=== PATIENT | female | born 1990 | race Caucasian/White ===

== ENCOUNTER 2018-11-09 21:57 | Emergency (ER) | payer SELFPAY ==
[2018-11-09 22:29] LABS: Urine Blood NEGATIVE (NEG); Urine Glucose NEGATIVE (NEG); Urine Protein NEGATIVE (NEG); Urine pH 7.5 (5.0-7.0)
[2018-11-09] MEDS ORDERED: ACETAMINOPHEN 500 MG TAB ONE (22:44)
[2018-11-09] MEDS ORDERED: IBUPROFEN 400 MG TAB ONE (22:44)
--- NOTE | 2018-11-09 23:01 | EDPHYS ---
Physician Documentation [facility] Name: Heidy Granados Age: 28 yrs Sex: Female : 1990 Arrival Date: 11/09/2018 Time: 21:59 Bed 14 Private MD: ED Physician Abhi Gong HPI: 11/09 22:05 This 28 yrs old Female presents to ER via EMS with complaints of left wrist cp pain. 22:05 The patient or guardian reports pain, tenderness. Context: resulted from an unknown cp cause. Onset: The symptoms/episode began/occurred today. Modifying factors: the symptoms are aggravated by gripping. Associated signs and symptoms: Pertinent negatives: cyanosis distally, decreased sensation distally. 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 - Social history:: Smoking status: Patient uses tobacco products, smokes one-half pack cigarettes per day, Patient/guardian denies using alcohol. - Ebola Screening: : No symptoms or risks identified at this time. ROS: 22:10 Constitutional: Negative for body aches, chills, fever, poor PO intake. cp 22:10 Eyes: Negative for injury, pain, redness, and discharge. cp 22:10 ENT: Negative for drainage from ear(s), ear pain, sore throat, difficulty swallowing, difficulty handling secretions. 22:10 Respiratory: Negative for cough. 22:10 Abdomen/GI: Negative for abdominal pain, vomiting, diarrhea, constipation. 22:10 Back: Negative for pain at rest, pain with movement. 22:10 MS/extremity: Positive for pain, tenderness, of the ulna side of left wrist, Negative for injury or acute deformity, decreased range of motion, paresthesias. 22:10 Skin: Negative for cellulitis, rash. 22:10 All other systems are negative. Exam: 22:18 Constitutional: The patient appears in no acute distress, alert, awake, well developed, cp well nourished. 22:18 Head/Face: Normocephalic, atraumatic. cp 22:18 Eyes: Periorbital structures: appear normal, Conjunctiva: normal, Lids and lashes: appear normal, bilaterally. 22:18 Chest/axilla: Inspection: normal. 22:18 Cardiovascular: Rate: tachycardic. 22:18 Musculoskeletal/extremity: Extremities: grossly normal except: noted in the proximal left first metacarpal: pain, tenderness, There is no evidence of decreased ROM, deformity, ROM: limited passive range of motion due to pain, in the left wrist, Perfusion: the extremity is normally perfused throughout, Sensation intact. 22:18 Skin: cellulitis, is not appreciated, no rash present. Vital Signs: 21:55 BP 138 / 97; Pulse 101; Resp 18; Temp 99.2; Pulse Ox 100% on R/A; Weight 108.86 kg (R); jb4 Height 5 ft. 8 in. (172.72 cm) (R); Pain 3/10; 23:00 BP 116 / 79; Pulse 87; Resp 16; Pulse Ox 100% on R/A; jb4 21:55 Body Mass Index 36.49 (108.86 kg, 172.72 cm) jb4 MDM: 22:01 Patient medically screened. cp 23:00 Data reviewed: vital signs, nurses notes, radiologic studies, plain films. cp 23:00 Test interpretation: by ED physician or midlevel provider: plain radiologic studies. cp Response to treatment: improved, and as a result, I will discharge patient. ED course: xrays of left wrist negative for fracture. 11/09 22:22 Order name: Urine Dipstick--Ancillary (enter results); Complete Time: 23:04 2 11/09 22:22 Order name: Urine --Ancillary (enter results); Complete Time: 23:04 2 11/09 22:00 Order name: XRAY Wrist LEFT 3 view cp 11/09 22:53 Order name: Thumb Spica Splint; Complete Time: 23:18 cp Administered Medications: 22:37 Drug: Ibuprofen 800 mg Route: PO; 4 23:00 Follow up: Response: No adverse reaction; Pain is decreased [facility] 22:37 Drug: Tylenol 1000 mg Route: PO; jb4 23:00 Follow up: Response: No adverse reaction; Pain is decreased [facility] Disposition: 11/09/18 23:00 Discharged to Home. Impression: Pain in left wrist. - Condition is Stable. - Discharge Instructions: Wrist Pain, De Quervain Tenosynovitis. - Prescriptions for Diclofenac Sodium 75 mg Oral Tablet Sustained Release - take 1 tablet by ORAL route 2 times per day; 30 tablet. - Medication Reconciliation Form, Thank You Letter, Antibiotic Education, Prescription Opioid Use form. - Follow up: Adin Barton MD; When: 1 week; Reason: pain continues. - Problem is new. - Symptoms have improved. Addendum: 11/14/2018 10:51 Co-signature as Attending Physician, Abhi Gong MD I agree with the assessment and c nam plan of care. Signatures: Dispatcher [employer] EDOK Abhi Gong MD MD cha Page, Corey, PA PA Juan Ruiz, RN RN jb4 Corrections: (The following items were deleted from the chart) 11/09 23:18 23:00 11/09/2018 23:00 Discharged to Home. Impression: Pain in left wrist. Condition is jb4 Stable. Forms are Medication Reconciliation Form, Thank You Letter, Antibiotic Education, Prescription Opioid Use. Follow up: Adin Barton; When: 1 week; Reason: pain continues. Problem is new. Symptoms have improved. cp
--- NOTE | 2018-11-09 23:01 | ER ---
Nurse's Notes [facility] Name: Heidy Granados Age: 28 yrs Sex: Female : 1990 Arrival Date: 11/09/2018 Time: 21:59 Bed 14 Private MD: Diagnosis: Pain in left wrist Presentation: 11/09 21:55 Presenting complaint: EMS states: Pt is complaining of left wrist pain, has a jb4 noticeable lump on the wrist. 21:55 Transition of care: patient was not received from another setting of care. Onset of jb4 symptoms was November 09, 2018. Risk Assessment: Do you want to hurt yourself or someone else? Patient reports no desire to harm self or others. Initial Sepsis Screen: Does the patient meet any 2 criteria? HR > 90 bpm. Yes Does the patient have a suspected source of infection? No. Patient's initial sepsis screen is negative. Care prior to arrival: None. 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 - Social history:: Smoking status: Patient uses tobacco products, smokes one-half pack cigarettes per day, Patient/guardian denies using alcohol. - Ebola Screening: : No symptoms or risks identified at this time. Screenin:55 Abuse screen: Denies threats or abuse. Nutritional screening: No deficits noted. jb4 Tuberculosis screening: No symptoms or risk factors identified. Fall Risk None identified. Assessment: 21:55 General: Appears in no apparent distress. comfortable, Behavior is calm, cooperative, jb4 appropriate for age. Pain: Complains of pain in lateral aspect of left wrist Pain does not radiate. Pain currently is 3 out of 10 on a pain scale. Neuro: Level of Consciousness is awake, alert, obeys commands, Oriented to person, place, time, situation. Cardiovascular: Patient's skin is warm and dry. Respiratory: Airway is patent Respiratory effort is even, unlabored, Respiratory pattern is regular, symmetrical. GI: No signs and/or symptoms were reported involving the gastrointestinal system. : No signs and/or symptoms were reported regarding the genitourinary system. EENT: No signs and/or symptoms were reported regarding the EENT system. Derm: Skin is intact, Skin is pink, warm \T\ dry. Musculoskeletal: Circulation, motion, and sensation intact. Range of motion: limited in MCP of left thumb. 23:00 Reassessment: Patient appears in no apparent distress at this time. Patient and/or jb4 family updated on plan of care and expected duration. Pain level reassessed. Patient is alert, oriented x 3, equal unlabored respirations, skin warm/dry/pink. Vital Signs: 21:55 BP 138 / 97; Pulse 101; Resp 18; Temp 99.2; Pulse Ox 100% on R/A; Weight 108.86 kg (R); jb4 Height 5 ft. 8 in. (172.72 cm) (R); Pain 3/10; 23:00 BP 116 / 79; Pulse 87; Resp 16; Pulse Ox 100% on R/A; jb4 21:55 Body Mass Index 36.49 (108.86 kg, 172.72 cm) jb4 ED Course: 21:55 Arm band placed on left wrist. jb4 21:55 Patient has correct armband on for positive identification. Bed in low position. Call jb4 light in reach. Side rails up X 1. Pulse ox on. NIBP on. 21:59 Patient arrived in ED. jb4 22:00 Triage completed. jb4 22:00 Abhi Simpson PA is PHCP. cp 22:01 Abhi Gong MD is Attending Physician. cp 22:05 Juan Bailey, YANA is Primary Nurse. jb4 22:17 XRAY Wrist LEFT 3 view In Process Unspecified. EDMS 23:00 Adin Barton MD is Referral Physician. cp 23:00 No provider procedures requiring assistance completed. Patient did not have IV access jb4 during this emergency room visit. Velcro wrist splint applied to left wrist. Administered Medications: 22:37 Drug: Ibuprofen 800 mg Route: PO; jb4 23:00 Follow up: Response: No adverse reaction; Pain is decreased jb4 22:37 Drug: Tylenol 1000 mg Route: PO; jb4 23:00 Follow up: Response: No adverse reaction; Pain is decreased jb4 Outcome: 23:00 Discharge ordered by . fadi 23:10 Discharged to home ambulatory. jb4 23:10 Condition: stable 23:10 Discharge instructions given to patient, Instructed on discharge instructions, follow up and referral plans. medication usage, Demonstrated understanding of instructions, follow-up care, medications, Prescriptions given X 1. 23:18 Patient left the ED. jb4 Signatures: Dispatcher [employer] EDAR Abhi Simpson PA PA cp Bryson, James, RN RN jb4
--- NOTE | 2018-11-10 07:25 | RAD REPORT ---
EXAM DESCRIPTION: RAD - Wrist Left 3 View - 11/09/2018 10:22 pm CLINICAL HISTORY: Left wrist pain, soft tissue mass COMPARISON: None. FINDINGS: No fracture is identified. There is no dislocation or periosteal reaction noted. No air, c alcification or foreign body in the soft tissues. No radiographic correlate for a clinically palpable mass. IMPRESSION: Negative left wrist examination. Ongoing clinical concerns regarding the reported soft t issue mass can be addressed with MR imaging.
== END 2018-11-09 23:18 | disposition home or self-care (01) ==
LOC: ER 21:57
DX: M25.532 Pain in left wrist (principal); F17.210 Nicotine dependence, cigarettes, uncomplicated
CPT/HCPCS: 81003; 81025; 99284

== ENCOUNTER 2019-05-30 18:28 | Emergency (ER) | payer SELFPAY ==
--- OUTSIDE RECORDS SUMMARY | 2019-05-30 18:30 | XMS REPORT | Summary of Care ---
:1990 Author Name SABRINA FINE M.D. Address Unavailable Unavailable , Care Team Providers Name Role Phone SABRINA FINE M.D. Unavailable Unavailable Unavailable Unavailable Unavailable Functional Status Name Dates Details Functional status health issues are not documented Status: Name Dates Details Cognitive status health issues are not documented Status: Problems Name Dates Details Postoperative pain (338.18, G89.18) Status: Active exam (V24.2, Z39.2) Status: Active Medications Name Dates Details TraMADol HCl - 50 MG Oral Tablet Refills: 0 Active Ibuprofen 600 MG Oral Tablet Refills: 0 Active TraMADol HCl ER 100 MG Oral Capsule Extended Release 24 Hour TAKE 1 CAPSULE 3 TIMES DAILY PRN pain Quantity: 20 Refills: 0 SABRINA FINE M.D. Start : 28-Feb-2018 Active Allergies and Adverse Reactions Name Dates Details No Known Drug Allergies (Allergy) Status: Active Past Medical History Name Dates Details History of bipolar disorder (V11.1, Z86.59) Status: Resolved Procedures Procedure Dates Details History of section Completed Immunization Name Dates Details Immunizations not documented Family History Name Dates Details Family history of hypertension (V17.49, Z82.49) Status: Active Family history of diabetes mellitus (V18.0, Z83.3) Status: Active Social History Name Dates Details - Status: Name Dates Details Never smoker Vital Signs Date Test Result Details [id number] BP Systolic 121 mm[Hg] Status: Comments: Location: RUE; Position: Sitting BP Diastolic 81 mm[Hg] Status: Comments: Location: RUE; Position: Sitting Height 67.25 in Status: Weight 213.5 lb Status: Body Mass Index Calculated 33.19 kg/m2 Status: Body Surface Area Calculated 2.08 m2 Status: Temperature 99.6 f Status: Comments: Method: Tympanic Heart Rate 78 /min Status: Respiration Rate 16 /min Status: Physical Findings 0 Status: Comments: PHQ-9 Adult Depression Screening Results Date Description Value Details Results not documented Plan of Care Name Dates Details Planned Observations Planned Goals not documented Interventions Provided Discussion/Summary1. care: declined pelvic exam despite extensive counseling - has never had pap smear. Declined gardasil and Tdap. Rubella immune.2. control: counseled on options, desires condoms3. Preeclampsia with severe features: asx, BPS normalRTC for pap smear once amenableSabrina Fine MD. Instructions Name Dates Details Instructions not documented Encounters Appointment; SABRINA FINE M.D. On: 28-Feb-2018 8:45 Encounter Diagnosis: Problem not documented Appointment; SABRINA FINE M.D. On: 21-Mar-2018 8:30 Encounter Diagnosis: Problem not documented Appointment; SABRINA FINE M.D. On: 04-Apr-2018 11:00 Encounter Diagnosis: Problem not documented
[2019-05-30] MEDS ORDERED: dexAMETHasone 10 MG/ML VIAL ONE (19:48)
--- NOTE | 2019-05-30 19:52 | EDPHYS ---
Physician Documentation [facility] Name: Heidy Granados Age: 28 yrs Sex: Female : 1990 Arrival Date: 05/30/2019 Time: 18:31 Bed 13 Private MD: ED Physician Abhi Gong HPI: 05/30 19:34 This 28 yrs old Female presents to ER via Ambulatory with complaints of Sore jmm Throat, Congestion. 19:34 The patient presents with sore throat. Onset: The symptoms/episode began/occurred jmm gradually, 2 day(s) ago. Modifying factors: The symptoms are alleviated by nothing, the symptoms are aggravated by nothing. This is a 28 year old female with no chronic medical conditions that presents to the Ed with complaints of sore throat, congestion, left ear pain beginning this past weekend. Also states having green nasal mucus. . 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 - Social history:: Smoking status: Patient uses tobacco products, smokes one-half pack cigarettes per day. - Ebola Screening: : No symptoms or risks identified at this time. ROS: 19:34 Neck: Negative for injury, pain, and swelling, Cardiovascular: Negative for chest pain, jmm palpitations, and edema. 19:34 Constitutional: Positive for fever. 19:34 ENT: Positive for ear pain, sinus congestion, sore throat. 19:34 Respiratory: Positive for cough. 19:34 All other systems are negative. Exam: 19:34 Constitutional: This is a well developed, well nourished patient who is awake, alert, jmm and in no acute distress. Head/Face: atraumatic. Eyes: EOMI, no conjunctival erythema appreciated 19:34 Chest/axilla: Normal chest wall appearance and motion. 19:34 Respiratory: Normal respirations, no respiratory distress appreciated Abdomen/GI: Non distended, soft Back: Normal ROM Skin: General appearance color normal MS/ Extremity: Moves all extremities, no obvious deformities appreciated, no edema noted to the lower extremities Neuro: Awake and alert, normal gait Psych: Behavior is normal, Mood is normal, Patient is cooperative and pleasant 19:34 ENT: TM's: are normal, Posterior pharynx: Tonsils: enlarged on the right, enlarged on the left, with erythema, with exudate, swelling, that is moderate, erythema, that is moderate. 19:34 Neck: Lymph nodes: lymphadenopathy is appreciated, anterior cervical nodes. 19:34 Cardiovascular: Rate: normal, Rhythm: regular. 19:34 Respiratory: the patient does not display signs of respiratory distress, Respirations: normal, Breath sounds: are clear throughout. Vital Signs: 18:49 BP 145 / 89; Pulse 102; Resp 20; Temp 98.2; Pulse Ox 100% on R/A; Weight 112.94 kg; hb Height 5 ft. 8 in. (172.72 cm); Pain 8/10; 18:49 Body Mass Index 37.86 (112.94 kg, 172.72 cm) hb MDM: 19:29 Patient medically screened. donte 19:49 Data reviewed: vital signs, nurses notes. Counseling: I had a detailed discussion with samantha the patient and/or guardian regarding: the historical points, exam findings, and any diagnostic results supporting the discharge/admit diagnosis, lab results, the need for outpatient follow up, to return to the emergency department if symptoms worsen or persist or if there are any questions or concerns that arise at home. ED course: Patient is alert and non toxic in appearance in the ED. Patient prescribed oral abx and given strict return precautions. patient understood and agree with the plan of care. . 05/30 18:50 Order name: Strep; Complete Time: 19:37 05/30 18:50 Order name: Flu; Complete Time: 19:37 05/30 19:17 Order name: Throat Culture EDMS Administered Medications: 19:57 Drug: Decadron 10 mg Route: IM; Site: right deltoid; aa1 Disposition: 05/30/19 19:50 Discharged to Home. Impression: Acute tonsillitis. - Condition is Stable. - Discharge Instructions: Tonsillitis. - Prescriptions for Amoxicillin 875 mg Oral Tablet - take 1 tablet by ORAL route every 12 hours for 10 days; 20 tablet. - Medication Reconciliation Form, Thank You Letter, Antibiotic Education, Prescription Opioid Use form. - Follow up: Private Physician; When: 2 - 3 days; Reason: Recheck today's complaints, Continuance of care, Re-evaluation by your physician. Addendum: 06/01/2019 13:47 Co-signature as Attending Physician, Abhi Gong MD I agree with the assessment and c nam plan of care. Signatures: Dispatcher [employer] EDFatemeh Hurley RN RN aa1 Abhi Gong MD MD cha Mickail, Joel, PA PA jmm Baxter, Heather RN RN Corrections: (The following items were deleted from the chart) 05/30 20:04 19:50 05/30/2019 19:50 Discharged to Home. Impression: Acute tonsillitis. Condition is aa1 Stable. Forms are Medication Reconciliation Form, Thank You Letter, Antibiotic Education, Prescription Opioid Use. Follow up: Private Physician; When: 2 - 3 days; Reason: Recheck today's complaints, Continuance of care, Re-evaluation by your physician. samantha
--- NOTE | 2019-05-30 19:52 | ER ---
Nurse's Notes [facility] Name: Heidy Granados Age: 28 yrs Sex: Female : 1990 Arrival Date: 05/30/2019 Time: 18:31 Bed 13 Private MD: Diagnosis: Acute tonsillitis Presentation: 05/30 18:48 Presenting complaint: Body aches, nonproductive cough, sore throat, runny nose, hb sneezing, and headache 3-4 days. Denies N/V/D. Transition of care: patient was not received from another setting of care. Onset of symptoms was May 26, 2019. Risk Assessment: Do you want to hurt yourself or someone else? Patient reports no desire to harm self or others. Care prior to arrival: None. 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 - Social history:: Smoking status: Patient uses tobacco products, smokes one-half pack cigarettes per day. - Ebola Screening: : No symptoms or risks identified at this time. Vital Signs: 18:49 BP 145 / 89; Pulse 102; Resp 20; Temp 98.2; Pulse Ox 100% on R/A; Weight 112.94 kg; hb Height 5 ft. 8 in. (172.72 cm); Pain 8/10; 18:49 Body Mass Index 37.86 (112.94 kg, 172.72 cm) hb ED Course: 18:31 Patient arrived in ED. rg4 18:49 Triage completed. hb 18:49 Arm band placed on. hb 18:55 Strep Sent. hb 18:55 Flu Sent. hb 19:20 Edgar Danielle PA is PHCP. [facility] 19:20 Abhi Gong MD is Attending Physician. [facility] 19:43 Fatemeh Berkowitz, YANA is Primary Nurse. aa1 Administered Medications: 19:57 Drug: Decadron 10 mg Route: IM; Site: right deltoid; aa1 Outcome: 19:50 Discharge ordered by . samantha 20:04 Patient left the ED. aa1 Signatures: Fatemeh Berkowitz RN RN aa1 Edgar Danielle PA PA jmm Baxter, Heather, RN RN Minal Bennett 4
[2019-05-30 20:47] VITALS: BP 145/89; TEMP 98.2; O2SAT 100
== END 2019-05-30 20:04 | disposition home or self-care (01) ==
LOC: ER 18:28
DX: J03.90 Acute tonsillitis, unspecified (principal); F17.210 Nicotine dependence, cigarettes, uncomplicated
CPT/HCPCS: 87070; 87081; 87804; 96372; 99283; J1100